=== PATIENT | female | born 1995 | race Caucasian/White ===

== ENCOUNTER 2019-09-27 22:59 | Emergency (ER) | payer BC, OTHER ==
[~2019-09-27] VITALS: Ht 157.5 cm; Wt 88.5 kg
[2019-09-27 23:06] VITALS: BP_SYST 136
[2019-09-27] MEDS ORDERED: SULFAMETHOXAZOLE/TRIMETHOPR DS 1 TABLET PO ONE (23:45)
== END 2019-09-27 23:54 | disposition home or self-care (01) ==
LOC: SED 22:59
DX: N15.9 Renal tubulo-interstitial disease, unspecified (principal)
CPT/HCPCS: 81002; 81025; 99283